=== PATIENT | female | born 1970 | race Two or more races ===

== ENCOUNTER → 2025-01-09 | Outpatient (CLI) | payer MEDICAID, SELFPAY ==
--- NOTE | 2025-01-09 10:30 | XR_ITS ---
Examination: Screening digital mammography, bilateral Computer aided detection 3-D breast Tomosynthesis, bilateral Date and time of exam: January 1056 hours No priors available Indication: Screening Technique: Nonmagnified MLO, CC views of the breasts to been obtained, reconstructed from 3-D Tomosynthesis images. R2 computer aided detection program utilized for evaluation of suspicious masses and/or abnormal calcifications. 3-D Tomosynthesis images obtained. Findings: The breasts are heterogeneously dense, which may obscure small masses 12 mm focal asymmetry slightly upper right breast MLO view 3.2 cm from the nipple 12 mm focal asymmetry nipple level left breast CC view, 3 cm from the nipple IMPRESSION: BI-RADS Category 0: Incomplete: Need additional imaging evaluation 12 mm focal asymmetry slightly upper right breast MLO view, recommend spot tomographic MLO view, spot tomographic CC view outer right breast 12 mm focal asymmetry nipple level left breast CC view, recommend follow-up spot tomographic CC view, spot tomographic MLO view upper left breast Recommend bilateral breast sonography to complete the workup.
== END | disposition home or self-care (01) ==
PROVIDERS: PCP Nurse Practitioner Family; Referring Provider Nurse Practitioner Family; Visit Provider Nurse Practitioner Family
DX: Z12.31 Encounter for screening mammogram for malignant neoplasm of breast (principal); N64.89 Other specified disorders of breast; R92.8 Other abnormal and inconclusive findings on diagnostic imaging of breast
CPT/HCPCS: 77063; 77067

== ENCOUNTER → 2025-04-11 | Outpatient (CLI) | payer MEDICAID, SELFPAY ==
--- NOTE | 2025-04-11 09:30 | XR_ITS ---
Examination: Breast ultrasound complete, bilateral Date and time of exam: April 11, 2025 0936 hours INDICATIONS: Mammogram January 09, 2025 12 mm focal asymmetry upper right breast MLO view 3.2 cm from the nipple, 12 mm focal asymmetry nipple level left breast CC view Technique: Real-time grayscale ultrasonographic imaging bilateral breasts, including all 4 quadrants as well as nipple retroareolar and axillary regions. Findings: Sonographic images right and left breast demonstrated no cystic or solid masses IMPRESSION: BI-RADS Category 1: Negative studies
--- NOTE | 2025-04-11 10:30 | XR_ITS ---
Examination: Diagnostic digital mammography, bilateral Computer aided detection 3-D breast Tomosynthesis, bilateral Date and time of exam: April 11, 2025 0950 hours INDICATIONS: Mammogram January 09, 2025 12 mm focal asymmetry upper right breast 12 mm focal asymmetry nipple level left breast on the CC view Technique: Nonmagnified MLO, CC views of the breasts to been obtained, reconstructed from 3-D Tomosynthesis images. R2 computer aided detection program utilized for evaluation of suspicious masses and/or abnormal calcifications. 3-D Tomosynthesis images obtained. Findings: The breasts are heterogeneously dense, which may obscure small masses No suspicious right breast mass Focal asymmetry remains outer left breast on the CC view, 3 cm from the nipple Impression: BI-RADS Category 3: Probably benign findings. One additional 6 month left mammogram follow-up is needed to document stability of focal asymmetry outer left breast described above.
== END | disposition home or self-care (01) ==
PROVIDERS: PCP Physician Assistant; Referring Provider Physician Assistant; Visit Provider Physician Assistant
DX: R92.333 Mammographic heterogeneous density, bilateral breasts (principal); N64.89 Other specified disorders of breast
CPT/HCPCS: 76641; 77062; 77066; G0279